=== PATIENT | male | born 1995 | race Caucasian/White ===

== ENCOUNTER 2016-12-14 00:48 | Emergency (ER) | payer OTHER ==
[2016-12-14 00:55] VITALS: RESP 16; TEMP 97.7
[2016-12-14] MEDS ORDERED: PROMETHAZINE HCL 25 MG TAB PO ONE (02:09)
[2016-12-14] MEDS ORDERED: PROMETHAZINE 25 MG PREPACK #4 BTL TAKEHOME ONE (02:09)
[2016-12-14] MEDS ORDERED: LORazepam 1 MG TAB PO ONE (02:10)
--- NOTE | 2016-12-14 02:12 | EDPHY ---
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 He takes 130 mg daily and has been taking this dose for several months. He says that he is feeling somewhat anxious, feels nauseated, feels his stomach turning and feels cold and hot at the same time. He has experienced opiate withdrawal previously and this feels similar. He has brought medication on the street for his symptoms when he is been in this situation before, however was encouraged to seek medical care so comes to the emergency department now. REVIEW OF SYSTEMS Constitutional: No fever, no chills. Eyes: No discharge. ENT: No sore throat. Cardiovascular: No chest pain, no palpitations. Respiratory: No cough, no shortness of breath. Gastrointestinal: No abdominal pain, no vomiting. Genitourinary: No hematuria. Musculoskeletal: No back pain. Skin: No rashes. Neurological: No headache. 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 Soc Hx: Works for [employer], college student PHYSICAL General Appearance: Alert, somewhat uncomfortable appearing Eyes: Pupils equal and round no pallor or injection ENT, Mouth: Mucous membranes moist Respiratory: There are no retractions, lungs are clear to auscultation Cardiovascular: Regular rate and rhythm Gastrointestinal: Abdomen is soft and non-tender, no masses, bowel sounds normal Neurological: A&O, moves all extremities Skin: Warm and dry, no rashes Musculoskeletal: Neck is supple non tender Extremities: symmetrical, full range of motion Psychiatric: Patient is oriented X 3, there is no agitation Source: Patient Exam Limitations: No limitations - Personal History Current Tetanus/Diphtheria Vaccine: Unsure Current Tetanus Diphtheria and Acellular Pertussis (TDAP): Unsure - Medical/Surgical History Hx Asthma: No Hx Chronic Respiratory Disease: No Hx Diabetes: No Hx Cardiac Disease: No Hx Renal Disease: No Hx Cirrhosis: No Hx Alcoholism: No Hx HIV/AIDS: No Hx Splenectomy or Spleen Trauma: No Other PMH: Hx strep, ortho, - Social History Smoking Status: Heavy smoker Constitutional: Initial Vital Signs Temperature (C) 36.5 C 12/14/16 00:52 Heart Rate 84 10/29/17 00:52 Respiratory Rate 16 12/14/16 00:52 Blood Pressure 101/66 12/14/16 00:52 O2 Sat (%) 94 12/14/16 00:52 O2 Delivery Mode Room Air Allergies/Adverse Reactions: No Known Allergies Allergy (Unverified 04/29/15 15:53) Home Medications: Medication Instructions Recorded LORazepam [Ativan] 1 mg PO BID PRN #4 tablet 12/14/16 clonIDINE [Catapres (*)] 0.2 mg PO BID PRN #8 tab 12/14/16 Medical Decision Making Differential Diagnosis: This is a 20-year-old male who presents with symptoms of opiate withdrawal after missing his morning methadone dose of 130 mg. plan to treat him here with symptomatic management including clonidine, Phenergan, Ativan. I will give him a short course of medications he can take through the weekend to avoid buying drugs on the street. I doubt that he has any electrolyte disturbance, current infection. - Data Points Medications Given: Discontinued Medications Clonidine (Catapres) 0.2 mg PO EDNOW ONE Stop: 12/14/16 02:10 Last Admin: 12/14/16 02:17 Dose: 0.2 mg Lorazepam (Ativan) 1 mg PO EDNOW ONE Stop: 12/14/16 02:11 Last Admin: 12/14/16 02:17 Dose: 1 mg Promethazine HCl (Phenergan 25 Mg Prepack #4) 1 btl TAKEHOME EDNOW ONE Stop: 12/14/16 02:10 Last Admin: 12/14/16 02:17 Dose: 1 btl Promethazine HCl (Phenergan) 12.5 mg PO ONCE ONE Stop: 12/14/16 02:10 Last Admin: 12/14/16 02:17 Dose: 12.5 mg Departure - Departure Disposition: Home, Routine, Self-Care Clinical Impression: Opiate withdrawal Condition: Good Instructions: Methadone (By mouth) Additional Instructions: Please take the medications as prescribed until you can get your methadone on Thursday. You can return to the emergency department if your worse in any way. You can take Phenergan 12.5 mg every 6 hours as needed. Referrals: [facility] [Clinic] - As per Instructions Prescriptions: clonIDINE [Catapres (*)] 0.2 mg PO BID PRN #8 tab PRN Reason: Nausea/Vomiting With Chemo
[2016-12-14 02:30] VITALS: BP 116/59; PULSE 71; O2SAT 93
== END 2016-12-14 02:30 | disposition home or self-care (01) ==
DX: F11.23 Opioid dependence with withdrawal (principal); F17.200 Nicotine dependence, unspecified, uncomplicated

== ENCOUNTER 2016-12-14 11:17 | Emergency (ER) | payer OTHER ==
[2016-12-14 11:23] VITALS: BP 95/56; PULSE 80; RESP 16; TEMP 98.6; O2SAT 98
--- NOTE | 2016-12-14 12:37 | EDPHY ---
H & P Stated Complaint: "methadone withdrawal" here last night for same Time Seen by Provider: 12/14/16 12:29 HPI/ROS: Chief Complaint: Methadone withdrawal HPI: 20-year-old male presenting with nausea and general malaise secondary to methadone withdrawal. Patient is here early this morning for the same. At that point he got benzodiazepines and clonidine. Patient states that he is not taking any further medication but really feels he just needs a narcotic and a bed to sleep in the hospital until he can get in the methadone clinic tomorrow. Denies any fevers or chills. No chest pain or shortness of breath. ROS: 10 point Review of Systems is negative except as noted in the HPI. PMH: Chronic opiate dependence Social History: Positive smoking, occasional alcohol, chronic opioid dependence Family History: non-contributory Physical Exam: Gen: Awake, Alert, No Distress HEENT: Nose: no rhinorrhea Eyes: PERRLA, EOMI Mouth: Moist mucosa Neck: Supple, no JVD Chest: nontender, lungs clear to auscultation Heart: S1, S2 normal, no murmur Abd: Soft, non-tender, no guarding Back: no CVA tenderness, no midline tenderness Ext: no edema, non-tender Skin: no rash Neuro: CN II-XII intact, Sensation grossly intact, Strength 5/5 in bilateral upper and lower extremities - Personal History Current Tetanus/Diphtheria Vaccine: Unsure Current Tetanus Diphtheria and Acellular Pertussis (TDAP): Unsure - Medical/Surgical History Hx Asthma: No Hx Chronic Respiratory Disease: No Hx Diabetes: No Hx Cardiac Disease: No Hx Renal Disease: No Hx Cirrhosis: No Hx Alcoholism: No Hx HIV/AIDS: No Hx Splenectomy or Spleen Trauma: No Other PMH: methadone at [facility] - Social History Smoking Status: Heavy smoker Constitutional: Initial Vital Signs Temperature (C) 37.0 C 12/14/16 11:21 Heart Rate 80 12/14/16 11:21 Respiratory Rate 16 12/14/16 11:21 Blood Pressure 95/56 L 12/14/16 11:21 O2 Sat (%) 98 12/14/16 11:21 O2 Delivery Mode Room Air Allergies/Adverse Reactions: No Known Allergies Allergy (Unverified 04/29/15 15:53) Home Medications: Medication Instructions Recorded LORazepam [Ativan] 1 mg PO BID PRN #4 tablet 12/14/16 clonIDINE [Catapres (*)] 0.2 mg PO BID PRN #8 tab 12/14/16 Medical Decision Making ED Course/Re-evaluation: 20-year-old male in methadone withdrawal. He is not taking any medications he was sent home with. Patient is asking for an inpatient bed until tomorrow and we asking for narcotics. I have explained to him that we do not treat narcotic withdrawal with admission to the hospital or by giving narcotics. I am certainly happy to give him medications for his symptoms. I will give him an Ativan to go pack now. He was given other medications but Dr. hernandez last night. He will otherwise be able to follow up in the methadone clinic tomorrow. He will return for uncontrolled nausea or vomiting. He has been here for an hour and half has had no vomiting or any other symptoms and has been sleeping in a chair. I have offered to [facility] but the patient is refusing that at this time. If we are not going to give him narcotics he does not want to stay here. Departure - Departure Disposition: Home, Routine, Self-Care Clinical Impression: Opiate withdrawal Condition: Good Instructions: Lorazepam (By mouth), Opioid Withdrawal (ED) Additional Instructions: May take Ativan twice a day as needed for opioid withdrawal symptoms. Continue taking clonidine as prescribed by Dr. layne the last night. Follow up with the methadone clinic tomorrow. I recommend you go to the [facility] for further care of your opioid withdrawal. Referrals: [facility] [Outside] - As per Instructions Prescriptions: LORazepam [Ativan] 1 mg PO BID PRN #4 tablet PRN Reason: Anxiety
[2016-12-14] MEDS ORDERED: LORAZEPAM 1 MG PREPACK#4 BTL TAKEHOME ONE (12:38)
== END 2016-12-14 12:54 | disposition home or self-care (01) ==
DX: F11.23 Opioid dependence with withdrawal (principal); F17.200 Nicotine dependence, unspecified, uncomplicated